=== PATIENT | male | born 1975 | race Caucasian/White ===

== ENCOUNTER 2016-12-26 13:24 | Emergency (ER) ==
[2016-12-26 13:42] VITALS: BP 160/115; TEMP 98; BMI 38.2
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
== END 2016-12-26 15:30 | disposition home or self-care (01) ==
LOC: ED 13:24
DX: M54.2 Cervicalgia (principal); V43.52XA Car driver injured in collision with other type car in traffic accident, initial encounter; F17.210 Nicotine dependence, cigarettes, uncomplicated
CPT/HCPCS: 99283